=== PATIENT | female | born 1995 ===

== ENCOUNTER 2022-05-29 03:39 | Outpatient (CLI) | payer SELFPAY ==
[2022-05-29 10:58] LABS: Abs Immature Grans 0.02 10^3/uL (0.0-0.06); Absolute Basophil Count 0.02 10^3/uL (0.0-0.2); Absolute Eosinophil Count 0.17 10^3/uL (0.0-0.7); Absolute Lymphocyte Count 2.14 10^3/uL (1.2-3.4); Absolute Monocyte Count 0.54 10^3/uL (0.1-0.8); Absolute Neutrophil Count 5.18 10^3/uL (1.2-6.7); Basophils % 0.2; Eosinophils % 2.1; HCT 39.8 % (36.0-46.0); HGB 13.7 g/dL (11.2-15.7); Immature Grans % 0.2; Lymphocytes % 26.5; MCH 31.1 pg (27.0-33.0); MCHC 34.4 % (32.0-36.0); MCV 91 fL (80-95); MPV 8.6 fL (8.0-11.0); Monocytes % 6.7; Neutrophils % 64.3; Platelet Count 284 10^3/uL (130-400); RDW 12.4 % (11.7-14.6); RDW-SD 40.5 fL; WBC 8.07 10^3/uL (4.4-10.8)
[2022-05-30 08:54] LABS: Hepatitis B Surface Ag Negative (Negative)
[2022-05-30 09:29] LABS: HIV-1/2 Ag & Ab Screen Negative (Negative); Varicella IgG Antibody Positive (See Note)
[2022-05-30 09:37] LABS: Rubella IgG Ab (UVM) Positive (See Note)
[2022-05-30 09:44] LABS: Hepatitis C Ab w Rflx HCV PCR Negative (Negative)
[2022-05-31 13:05] LABS: Syphilis IgG w/Reflex Nonreactive (Nonreactive)
== END 2022-05-29 03:40 | disposition home or self-care (01) ==
PROVIDERS: Visit Provider Advanced Practice Midwife
DX: Z34.91 Encounter for supervision of normal pregnancy, unspecified, first trimester (principal); Z3A.10 10 weeks gestation of pregnancy
CPT/HCPCS: 36415; 86787; 86803; 86850; 86900; 86901; 87340; 87389; 85025; 86762; 86780

== ENCOUNTER 2022-05-29 10:55 | Outpatient (REF) | payer SELFPAY ==
--- NOTE | 2022-05-29 10:30 | PAPFT_PTH ---
PATIENT: Shaylee Headley LOC: [facility] U#:[id number] AGE/SX: 27/F ROOM: RE05/29/[address]: Lulu Ceja CNM : 1995 BED: DIS: 05/29/2022 SPEC #: [id number] RECD: 05/29/22 18:45 STATUS: ANNA MARIE REQ #: [id number] JOSE: 05/29/22 10:[address]: Lulu Ceja DEPT: [facility] Cytology RECD BY: Ileana Hunt ENTERED: 05/29/22 18:45 SP TYPE: PAPFT OT DR: None Tissues: 1 - CX/ENDOCX FOR PAP SMEARS Procedures: PAP THIN PREP/[facility] Screening Comments:
[2022-05-31 17:34] LABS: Chlamydia Result Negative (Negative); GC Result Negative (Negative)
== END 2022-05-29 10:56 | disposition home or self-care (01) ==
LOC: LBN 10:55
PROVIDERS: Visit Provider Advanced Practice Midwife
DX: Z11.3 Encounter for screening for infections with a predominantly sexual mode of transmission; Z34.91 Encounter for supervision of normal pregnancy, unspecified, first trimester; Z3A.10 10 weeks gestation of pregnancy; Z12.4 Encounter for screening for malignant neoplasm of cervix
CPT/HCPCS: 87491; 87591; 88142